=== PATIENT | female | born 1985 | race Caucasian/White ===

== ENCOUNTER 2022-09-12 13:54 | Emergency (ER) | payer OTHER ==
[~2022-09-12] VITALS: Ht 160 cm; Wt 53.5 kg
[2022-09-13] MEDS ORDERED: CEPHALEXIN500 MG PO (01:08)
== END 2022-09-13 01:17 ==
LOC: ER 13:54
DX: N39.0 Urinary tract infection, site not specified (principal); N83.209 Unspecified ovarian cyst, unspecified side; K43.9 Ventral hernia without obstruction or gangrene